=== PATIENT | male | born 1940 | race Asian ===

== ENCOUNTER → 2023-08-04 12:43 | Outpatient (REF) | payer MEDICARE, SELFPAY | LOC: RAD 12:43 | PROVIDERS: ATTENDING PHYSICIAN Internal Medicine Hematology & Oncology; FAMILY PHYSICIAN Internal Medicine; REFERRING PHYSICIAN Nurse Practitioner Adult Health | DX: R59.0 Localized enlarged lymph nodes (principal); C67.9 Malignant neoplasm of bladder, unspecified | CPT/HCPCS: 71260; 74177; Q9967 ==

== ENCOUNTER → 2023-08-30 16:17 | Outpatient (REF) | payer MEDICARE, SELFPAY ==
[2023-08-30 14:51] LABS: % Basophils 0.5 % (0-2); % Immature Granulocytes 0.4 % (0-0.5); % Lymphocytes 7.4 % (20.5-51.1); % Monocytes 8.3 % (1.7-9.3); % Neutrophils 83.4 % (42.2-75.2); Absolute Basophils 0.1 10^3/uL (0-0.2); Absolute Immature Granulocytes 0.1 10^3/uL (0-0.05); Absolute Monocytes 1.1 10^3/uL (0.1-0.6); Absolute Neutrophils 11.1 10^3/uL (1.4-6.5); Hematocrit 29.6 % (39.0-52.0); Hemoglobin 9.7 g/dL (13.0-18.0); Mean Corp Hgb Conc. 32.8 g/dL (33.0-37.0); Mean Corpuscular Volume 91.6 fL (80.0-94.0); Nucleated Red Blood Cells % 0 % (-); Platelet Count 162 10^3/uL (130-400); Red Blood Cell Count 3.23 10^6/uL (4.70-6.10); Red Cell Dist. Width 17.7 % (11.5-14.5); White Blood Cell Count 13.3 10^3/uL (4.8-10.8)
[2023-08-30 15:02] LABS: ALT (SGPT) 15 U/L (0-50); AST (SGOT) 25 U/L (17-59); Albumin 3.5 g/dl (3.5-5.0); Alkaline Phosphatase 128 U/L (38-126); Blood Urea Nitrogen 24 mg/dl (9-20); Calcium 8.7 mg/dl (8.4-10.2); Carbon Dioxide 26 mmol/L (22-30); Chloride 98 mmol/L (98-107); Glucose 115 mg/dl (70-99); Potassium 4.3 mmol/L (3.5-5.1); Sodium 130 mmol/L (135-145); Total Bilirubin 0.6 mg/dl (0.2-1.3); Total Protein 6.5 g/dl (6.3-8.2); eGFR 54.17
== END ==
LOC: OIDL 16:17
PROVIDERS: ATTENDING PHYSICIAN Internal Medicine Hematology & Oncology
DX: R59.0 Localized enlarged lymph nodes (principal); N28.89 Other specified disorders of kidney and ureter
CPT/HCPCS: 80053; 85025

== ENCOUNTER → 2023-08-31 15:58 | Outpatient (REF) | payer MEDICARE, SELFPAY ==
[2023-08-31 14:10] LABS: Iron 55 ug/dl (49-181)
[2023-08-31 14:20] LABS: Percent Saturation 23 % (20-50); Total Iron Binding Capacity 231 ug/dl (261-462)
== END ==
LOC: OIDL 15:58
PROVIDERS: ATTENDING PHYSICIAN Nurse Practitioner Adult Health
DX: R59.0 Localized enlarged lymph nodes (principal); D63.1 Anemia in chronic kidney disease
CPT/HCPCS: 82728; 83540; 83550

== ENCOUNTER → 2023-09-09 12:40 | Outpatient (REF) | payer MEDICARE, SELFPAY ==
[2023-09-09 13:38] LABS: Urine Albumin 2+ (Neg - Trace); Urine Bilirubin Negative (Negative); Urine Character Very Cloudy (Clear); Urine Color Yellow; Urine Glucose Negative (Negative); Urine Ketone Negative (Negative); Urine Leukocyte 2+ (Negative); Urine Nitrite Positive (Negative); Urine Occult Blood 4+ (Negative); Urine Urobilinogen Negative (Neg - 1+)
[2023-09-09 14:02] LABS: Urine Bacteria Moderate (Negative); Urine Squamous Cell 0-2 /LPF (Few); Urine White Cell 16-20 /HPF (0-5)
== END ==
LOC: REG 12:40
PROVIDERS: ATTENDING PHYSICIAN Internal Medicine Hematology & Oncology; FAMILY PHYSICIAN Internal Medicine
DX: R59.0 Localized enlarged lymph nodes (principal); C67.9 Malignant neoplasm of bladder, unspecified; Z51.81 Encounter for therapeutic drug level monitoring; R53.82 Chronic fatigue, unspecified; D63.1 Anemia in chronic kidney disease; N28.89 Other specified disorders of kidney and ureter
CPT/HCPCS: 81003; 81015; 87086; 87147; 87186

== ENCOUNTER → 2023-09-15 12:54 | Outpatient (REF) | payer MEDICARE, SELFPAY ==
[2023-09-15 13:34] LABS: % Basophils 0.2 % (0-2); % Eosinophils 0.2 % (0-6); % Immature Granulocytes 0.8 % (0-0.5); % Lymphocytes 3.9 % (20.5-51.1); % Monocytes 4.7 % (1.7-9.3); % Neutrophils 90.2 % (42.2-75.2); Absolute Basophils 0.1 10^3/uL (0-0.2); Absolute Eosinophils 0.1 10^3/uL (0-0.7); Absolute Immature Granulocytes 0.2 10^3/uL (0-0.05); Absolute Lymphocytes 1.1 10^3/uL (1.2-3.4); Absolute Monocytes 1.4 10^3/uL (0.1-0.6); Absolute Neutrophils 26.5 10^3/uL (1.4-6.5); Hematocrit 30.2 % (39.0-52.0); Hemoglobin 9.9 g/dL (13.0-18.0); Mean Corp Hgb Conc. 32.8 g/dL (33.0-37.0); Mean Corpuscular Hgb 30.3 pg (27.0-31.0); Mean Corpuscular Volume 92.4 fL (80.0-94.0); Mean Platelet Volume 9.7 fL (7.4-10.4); Nucleated Red Blood Cells % 0 % (-); Platelet Count 151 10^3/uL (130-400); Red Blood Cell Count 3.27 10^6/uL (4.70-6.10); Red Cell Dist. Width 18.6 % (11.5-14.5); White Blood Cell Count 29.3 10^3/uL (4.8-10.8)
== END ==
LOC: REG 12:54
PROVIDERS: ATTENDING PHYSICIAN Internal Medicine Hematology & Oncology; FAMILY PHYSICIAN Internal Medicine
DX: R59.0 Localized enlarged lymph nodes (principal); C67.9 Malignant neoplasm of bladder, unspecified; Z51.81 Encounter for therapeutic drug level monitoring; R53.82 Chronic fatigue, unspecified; D63.1 Anemia in chronic kidney disease
CPT/HCPCS: 36415; 85025

== ENCOUNTER → 2023-09-17 15:35 | Outpatient (REF) | payer MEDICARE, SELFPAY ==
[2023-09-17 16:40] LABS: % Basophils 0.4 % (0-2); % Eosinophils 0.1 % (0-6); % Immature Granulocytes 0.7 % (0-0.5); % Lymphocytes 4.6 % (20.5-51.1); % Monocytes 5.8 % (1.7-9.3); % Neutrophils 88.4 % (42.2-75.2); Absolute Basophils 0.1 10^3/uL (0-0.2); Absolute Immature Granulocytes 0.2 10^3/uL (0-0.05); Absolute Monocytes 1.3 10^3/uL (0.1-0.6); Absolute Neutrophils 20.1 10^3/uL (1.4-6.5); Hematocrit 28.2 % (39.0-52.0); Hemoglobin 9.7 g/dL (13.0-18.0); Mean Corp Hgb Conc. 34.4 g/dL (33.0-37.0); Mean Corpuscular Hgb 30.8 pg (27.0-31.0); Mean Corpuscular Volume 89.5 fL (80.0-94.0); Mean Platelet Volume 9.7 fL (7.4-10.4); Nucleated Red Blood Cells % 0 % (-); Platelet Count 163 10^3/uL (130-400); Red Blood Cell Count 3.15 10^6/uL (4.70-6.10); Red Cell Dist. Width 18.9 % (11.5-14.5); White Blood Cell Count 22.8 10^3/uL (4.8-10.8)
[2023-09-17 16:45] LABS: ALT (SGPT) 16 U/L (0-50); AST (SGOT) 25 U/L (17-59); Albumin 3.5 g/dl (3.5-5.0); Alkaline Phosphatase 151 U/L (38-126); Blood Urea Nitrogen 32 mg/dl (9-20); Calcium 8.8 mg/dl (8.4-10.2); Carbon Dioxide 22 mmol/L (22-30); Chloride 97 mmol/L (98-107); Glucose 93 mg/dl (70-99); Potassium 4.6 mmol/L (3.5-5.1); Sodium 130 mmol/L (135-145); Total Bilirubin 0.3 mg/dl (0.2-1.3); Total Protein 6.3 g/dl (6.3-8.2); eGFR 39.26
== END ==
LOC: RAD 15:35
PROVIDERS: ATTENDING PHYSICIAN Internal Medicine Hematology & Oncology; FAMILY PHYSICIAN Internal Medicine
DX: R59.0 Localized enlarged lymph nodes (principal); C67.9 Malignant neoplasm of bladder, unspecified; Z51.81 Encounter for therapeutic drug level monitoring; R53.82 Chronic fatigue, unspecified; D63.1 Anemia in chronic kidney disease
CPT/HCPCS: 36415; 80053; 85025

== ENCOUNTER → 2023-09-18 10:34 | Outpatient (REF) | payer MEDICARE, SELFPAY ==
[2023-09-18 11:29] LABS: Urine Albumin 1+ (Neg - Trace); Urine Bilirubin 1+ (Negative); Urine Character Slightly Cloudy (Clear); Urine Color Brown; Urine Glucose Negative (Negative); Urine Ketone Trace (Negative); Urine Leukocyte 2+ (Negative); Urine Nitrite Negative (Negative); Urine Occult Blood 4+ (Negative); Urine Specific Gravity 1.015 (<1.030); Urine Urobilinogen Negative (Neg - 1+)
[2023-09-18 11:42] LABS: Urine Bacteria Moderate (Negative); Urine Red Blood Cell 16-20 /HPF (0-2); Urine White Cell 70-80 /HPF (0-5)
== END ==
LOC: REG 10:34
PROVIDERS: ATTENDING PHYSICIAN Internal Medicine Hematology & Oncology; FAMILY PHYSICIAN Internal Medicine
DX: R59.0 Localized enlarged lymph nodes (principal); C67.9 Malignant neoplasm of bladder, unspecified; Z51.81 Encounter for therapeutic drug level monitoring; R53.82 Chronic fatigue, unspecified; D63.1 Anemia in chronic kidney disease; N28.89 Other specified disorders of kidney and ureter
CPT/HCPCS: 81003; 81015; 87086

== ENCOUNTER 2023-09-22 18:26 | Inpatient (IN) | payer MEDICARE, SELFPAY ==
[2023-09-22] VITALS (12 sets, daily range): BP systolic 121–176; BP diastolic 50–72; BMI 16.3; BMI 15.1
[2023-09-22 13:29] LABS: % Basophils 0.5 % (0-2); % Eosinophils 0.1 % (0-6); % Immature Granulocytes 0.5 % (0-0.5); % Lymphocytes 7.1 % (20.5-51.1); % Neutrophils 86.8 % (42.2-75.2); Absolute Basophils 0.1 10^3/uL (0-0.2); Absolute Immature Granulocytes 0.1 10^3/uL (0-0.05); Absolute Lymphocytes 1.1 10^3/uL (1.2-3.4); Absolute Monocytes 0.8 10^3/uL (0.1-0.6); Absolute Neutrophils 13.3 10^3/uL (1.4-6.5); Hematocrit 29.8 % (39.0-52.0); Hemoglobin 9.8 g/dL (13.0-18.0); Mean Corp Hgb Conc. 32.9 g/dL (33.0-37.0); Mean Corpuscular Hgb 30.6 pg (27.0-31.0); Mean Corpuscular Volume 93.1 fL (80.0-94.0); Mean Platelet Volume 9.2 fL (7.4-10.4); Nucleated Red Blood Cells % 0 % (-); Platelet Count 159 10^3/uL (130-400); Red Cell Dist. Width 18.7 % (11.5-14.5); White Blood Cell Count 15.3 10^3/uL (4.8-10.8)
[2023-09-22 13:35] LABS: INR 1.07; PT 13.9 Sec (11.4-14.6)
[2023-09-22 13:37] LABS: ALT (SGPT) 19 U/L (0-50); AST (SGOT) 28 U/L (17-59); Albumin 3.7 g/dl (3.5-5.0); Alkaline Phosphatase 152 U/L (38-126); Blood Urea Nitrogen 30 mg/dl (9-20); Calcium 8.7 mg/dl (8.4-10.2); Carbon Dioxide 22 mmol/L (22-30); Chloride 100 mmol/L (98-107); Glucose 107 mg/dl (70-99); Potassium 4.7 mmol/L (3.5-5.1); Sodium 129 mmol/L (135-145); Total Bilirubin 0.6 mg/dl (0.2-1.3); Total Protein 6.6 g/dl (6.3-8.2); eGFR 49.56
--- NOTE | 2023-09-22 15:01 | ED.GENMED ---
History of Present Illness
General
Chief Complaint: Urinary Symptoms
Time Seen by Provider: 09/22/23 15:01
Travel History
Have you had any contact with someone who has COVID-19?: No
Do you have any symptoms of coronavirus? Fever > 100 degrees, chills, cough, shortness of breath, sore throat, loss of taste or smell, muscle aches, or headache?: No
History of Present Illness
History of Present Illness:
HPI: The patient presents with gross hematuria. This is associated with left-sided abdominal and back pain. He has a history of a malignancy. He is known to Dr. Saunders and Dr. Renner. He last had chemo a few weeks ago with Keytruda and
reports have elevated white blood cell count�uncertain if he received Neupogen or Neulasta recently. He has had no fevers.
EXAM:
GENERAL: The patient appears generally weak and debilitated, he is cachectic
HEENT: Dry oral mucosa
CARDIOVASCULAR: No murmurs, normal heart rate, regular rhythm, No chest wall tenderness
PULMONARY: No respiratory distress, breath sounds are clear and equal
ABDOMEN: Soft with no peritoneal signs, minimal left-sided tenderness, mild left CVA tenderness
NEUROLOGIC: Fair strength all extremities, no coordination deficits
PSYCHIATRIC: Appropriate mental status, normal insight and judgement
EXTREMITIES: Nontender, no edema, moves all extremities equally
SKIN: No rash, no lesions
TIME OF INITIAL ENCOUNTER: 3:10 PM
NUMBER AND COMPLEXITY OF PROBLEMS ADDRESSED AT THE ENCOUNTER
� Chronic conditions affecting care: malignancy, has had bowel obstruction, high blood pressure, iron deficiency anemia
� Acute Exacerbation and/or Progression of Chronic Illness: This is a recurrent problem
� Differential Diagnosis includes: Worsening malignancy, ureteral stone, UTI/pyelonephritis, nonspecific hematuria
AMOUNT AND/OR COMPLEXITY OF DATA TO BE REVIEWED AND ANALYZED
� I performed an independent evaluation of and my interpretation is:
EKG: Sinus 58, leftward axis, poor R wave progression, borderline LVH
CT: I personally viewed CT imaging�bladder is noted to be mild to moderately distended but patient was unable to void at all
X-rays:
Laboratory Studies: White count is 15.3-5 days ago white count was 23, hemoglobin is 9.8�this is similar to prior, creatinine 1.4 which is near baseline, urinalysis shows much more RBCs and WBCs
Other:
� Review of other/old records: I reviewed oncology note from last December, at that time the patient had biopsy by IR of retroperitoneal nodes and had hematuria and was on CBI at that time
� Clinical information was obtained by an independent historian: I spoke to the at bedside
� Prescriptions/Medications Considered but not given:
� Further testing considered but not performed:
RISK OF COMPLICATIONS AND/OR MORBIDITY OR MORTALITY OF PATIENT MANAGEMENT
� Social determinants of health affecting care: Lives at home
� Discussion with other providers: At around 4:45 PM, I notified Dr. Mar as well as Dr. Boyle, Dr. Boyle agrees with CBI. Hospitalist for admission at 5:05 PM.
� Escalation of care including admission/observation vs risk of discharge considered: I personally assisted the patient by having him stand up and he was able to void just a few drops of blood, he does not have any suprapubic
distention, will obtain CT imaging for further evaluation. He was given IV fluids. CT does show a distended bladder�I have asked nurse to place three-way catheter. He did become bradycardic shortly after CBI was started but then EKG confirmed
heart rate back to 58.
Past History
Past History
ED Past Medical History: Cancer (colon)
ED Past Surgical History: Bowel resection
Patient has exhibited threatening behavior?: No
PSI?: No
Social History
Tobacco: Non-smoker
Alcohol: None
Drug: None
Personal:
Living: with family
Phy Exam
Physical Exam
Physical Exam:
See HPI
Course
Orders/Labs/Results
Orders:
Orders
09/22/23 13:17
Complete Blood Count/With Diff Urgent
Comprehensive Metabolic Panel Urgent
PT/INR [Prothrombin Time] Urgent
09/22/23 15:13
CT Abd/pel Without Iv Or Oral Urgent
Comment:
Reason For Exam: L pain gross hematuria; known malignancy; h/o ston
09/22/23 15:14
0.9% Sodium Chloride 500 ml [Nss] 500 ml IV BOLUS
09/22/23 15:41
CBI- Treatment PRN
Solution: saline
Irrigate to Clear?: Yes
Albert [Albert Placement- Treatment] ONCE
Reason for insertion: Acute Retention
09/22/23 15:48
Urinalysis Reflex To Culture Urgent
Date Specimen was Collected: 09/22/23
Time Specimen was Collected: 13:11
Urine Microscopic Reflex Cult Urgent
09/22/23 16:34
Electrocardiogram (*1) Urgent
Reason for Study: Bradycardia / Tachycardia
EKG- Treatment ONCE
09/22/23 17:46
HEMATOLOGY CONSULT Routine
Consulting Provider: Jayla Mar
Was physician already notified: Yes
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
09/22/23 17:47
Admit/Transfer Patient As Directed
Co-Sign Provider:
Level of Care: Inpatient admission
Assign to:: Medical/Surgical
Physician / Group: beth sorensen
Diagnosis: gross hematuria w/ urothelial cancer
Reason for Hospitalization: gross hematuria w/ urothelial cancer
Expected length of stay greater than two midnights?: Yes
ELOS- Estimated Length of Stay in days: 3
I certify the patient meets the requirements for IP care: Yes
Code Status As Directed
Resuscitation Status: Full Code
UROLOGY CONSULT Routine
Consulting Provider: Yobani Boyle
Was physician already notified: Yes
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
Abnormal Lab Results
09/22/23 09/22/23
13:17 15:48
WBC 15.3 H 10^3/uL
(4.8-10.8)
RBC 3.20 L 10^6/uL
(4.70-6.10)
Hgb 9.8 L g/dL
(13.0-18.0)
Hct 29.8 L %
(39.0-52.0)
MCHC 32.9 L g/dL
(33.0-37.0)
RDW 18.7 H %
(11.5-14.5)
Abs Immat Gran (auto) 0.1 H 10^3/uL
(0-0.05)
Absolute Neuts (auto) 13.3 H 10^3/uL
(1.4-6.5)
Absolute Lymphs (auto) 1.1 L 10^3/uL
(1.2-3.4)
Absolute Monos (auto) 0.8 H 10^3/uL
(0.1-0.6)
Neutrophils % 86.8 H %
(42.2-75.2)
Lymphocytes % 7.1 L %
(20.5-51.1)
Sodium 129 L mmol/L
(135-145)
BUN 30 H mg/dl
(9-20)
Creatinine 1.4 H mg/dL
(0.7-1.3)
Glucose 107 H mg/dl
(70-99)
Alkaline Phosphatase 152 H U/L
(38-126)
Ur Occult Blood Reflex 4+ A
(Negative)
Leukocyte Esterase Rfl Trace A
(Negative)
Urine RBC >100 A /HPF
(0-2)
Urine Albumin (Reflex) 3+ A
(Neg - Trace)
09/22/23 13:17
09/22/23 13:17
Vital Signs
Initial and Last Documented VS:
Initial Vital Signs
Temp Pulse Resp BP Pulse Ox
98.6 F 60 18 140/70 98
09/22/23 13:05 09/22/23 13:05 09/22/23 13:05 09/22/23 13:05 09/22/23 13:05
Last Documented Vital Signs
Temp Pulse Resp BP Pulse Ox
98.6 F 58 22 176/70 99
09/22/23 13:05 09/22/23 17:15 09/22/23 17:15 09/22/23 17:00 09/22/23 17:15
*Critical Care Note
Total Time (30-74mins, 75-104mins- exclusive of procedures): Not Applicable
ED Attending Note
-
Portions of this chart may have been created with voice recognition software.� Occasional wrong word or��sound alike� substitutions may have occurred due to the inherent limitations of voice recognition software.
Discharge Plan
Departure
Patient Disposition: Admit
Date of Disposition: 09/22/23
Time of Disposition: 17:05
Presentation/result/management discussed w/ accepting MD/DO: Hospitalist
Discharge Problem:
Gross hematuria
Prescriptions:
No Action
tamsulosin [Flomax] 0.4 MG capsule
0.4 mg PO DAILYPRN PRN (Reason: kidney stones)
acetaminophen 500 mg Tablet
1,000 mg PO DAILYPRN PRN (Reason: mild pain)
cinnamon bark [Cinnamon] 500 mg Capsule
1,000 mg PO DAILY
cholecalciferol (vitamin D3) [Vitamin D3] 125 mcg (5,000 unit) Tablet
5,000 unit PO DAILY
melatonin 5 mg Capsule
10 mg PO HSPRN PRN (Reason: SLEEP)
ferrous sulfate [iron] 325 mg (65 mg iron) Tablet
325 mg PO DAILY
cyanocobalamin (vitamin B-12) 1,000 mcg Tablet
1,000 mcg PO DAILY
amlodipine [Norvasc] 5 mg Tablet
5 mg PO DAILY
mirtazapine 15 mg Tablet
15 mg PO HS
Referrals:
Vangie Saravia MD [Family Provider] -
Interventions
Interventions:
*Risk Screen - Suicide Last Done: 09/22/23 13:05
*General Assessment Last Done: 09/22/23 13:05
*Neglect/Abuse Screening Last Done: 09/22/23 13:05
ED- Fall Risk Assessment Last Done: 09/22/23 14:55
*ED COVID-19 Vaccine History Last Done: 09/22/23 13:05
ED-Male Genitourinary Assessment Last Done: 09/22/23 14:49
[2023-09-22] MEDS: NSS 500 IV (15:30)
[2023-09-22 16:40] LABS: Urine Albumin 3+ (Neg - Trace); Urine Bilirubin Negative (Negative); Urine Character Bloody (Clear); Urine Color Red; Urine Glucose Negative (Negative); Urine Ketone Negative (Negative); Urine Leukocyte Trace (Negative); Urine Nitrite Negative (Negative); Urine Occult Blood 4+ (Negative); Urine Urobilinogen Negative (Neg - 1+)
[2023-09-22 16:51] LABS: Urine Red Blood Cell >100 /HPF (0-2)
--- NOTE | 2023-09-22 17:13 | HPS.HSE ---
Addendum entered and electronically signed by Eliane Vo MD 09/22/23 18:11:
I saw and examined the patient.
The L[employer] TR[employer] DRIVER's note was reviewed and I agree with the note.
Comment:
83-year-old male PMH hypertension, iron deficiency anemia, bowel obstruction with bowel resection 2001 secondary to colon cancer, urothelial cancer on Keytruda (follows with [facility]); p/w gross hematuria and difficulty with urination.
He is currently on Keytruda and was on Padcev therapy which was stopped last week due to elevated WBC count of 29.
� � � ��CT abdomen pelvis without contrast:
�� � � � � � 1.� Left kidney contains calculi and is also involvement with known retroperitoneal lymphadenopathy evaluation for left-sided obstructive uropathy markedly limited
�� � � � � � 2.� Likely progression of advanced retroperitoneal malignancy/lymphadenopathy compared to August 04, 2023
�� � � � � � 3.� Nonobstructing right renal calculi/staghorn calculi
�� � � � � � 4.� Cannot exclude intrinsic urinary bladder malignancy enlarged prostate with extrinsic compression upon the urinary bladder base
�� � � � � � 5.� DJD cannot exclude metastatic disease L2-L3 vertebral bodies
A/P:
# Gross hematuria in setting of Urothelial cancer
Receives Keytruda therapy�and was Padcev with Dr. Saunders
U/A neg for UTI
CBI started in ED, cont
Consult urology
Consult oncology
Continue Flomax with hold parameters for BP
# Improved leukocytosis
WBC at 29 one week AUTOMATIC [employer]READ W[employer]ER and Padcev was held
monitor CBC
# Hyponatremia
NA 129
Follow BMP
# CKD stage IIIb
Creat at 1.4 appears at baseline
# HTN-benign
Continue AUTOMATIC THREAD WINDER Norvasc
Add hydralazine IV PRN for SBP > 160
# Iron deficiency anemia
Continue ferrous sulfate
# History of colon cancer with bowel resection 2001
# Chronic ambulatory dysfunction
PT/OT/case management eval
# Insomnia
Continue melatonin as needed, Remeron
# Cachexia, severe protein caloric malnutrition
BMI 16.3
DVT prophylaxis: SCDs
Full code per patient with Vangie at bedside
Original Note:
Family Physician
-
Family Physician: Vangie Saravia
Chief Complaint
-
Gross hematuria
History of Present Illness
83-year-old male complaining of gross hematuria with left-sided abdominal and back pain that started today. He is known to Dr. Saunders for urothelial cancer he is currently on Keytruda therapy he is also on Padcen therapy which was stopped last week
due to elevated WBC count of 29 and is to resume once white blood cell count normalizes. He does report elevated white blood cell count unsure if he has received Neupogen or Neulasta recently. He was on prior chemotherapy from January to April 2023
per she is unsure of names. The patient denies fever, chills, chest pain, palpitations, shortness of breath, abdominal pain, nausea, vomiting, diarrhea.
His other past medical history includes hypertension, insomnia, iron deficiency anemia, balance disorder, bowel obstruction with bowel resection 2001 secondary to colon cancer.
Medical History
Past Medical History
Past Medical History: Reports Other
Additional Past Medical History:
Urothelial cancer on current immunotherapy Keytruda
Receives Keytruda therapy with Dr. Saunders and Padcin chemo
HTN
Iron deficiency anemia
History of colon cancer with bowel resection 2001
Ambulatory dysfunction
Insomnia
Past Surgical History: Reports Other
Additional Past Surgical History:
Bowel resection 2001 secondary to colon cancer
Kidney stone removal
Status post left renal embolization 12/11/2022
Retroperitoneal adenopathy status post biopsy December 2022
Social History
Tobacco: Non-smoker
Alcohol: None
Drug: None
Personal:
Living: With Family ( Vangie)
Employment: Retired
Family History
Family History: Other (Father of colon cancer age 92 mother gastric cancer age 72)
Allergies / Home Medications
Allergies reflects when Allergies were last updated in [employer]
Home Medications with original date entered in [employer]
Allergy/Medication List:
Allergies
Allergy/AdvReac Type Severity Reaction Status Date / Time
No Known Allergies Allergy Verified 09/22/23 13:10
Home Medications
tamsulosin 0.4 mg capsule (Flomax) 0.4 mg PO DAILYPRN PRN kidney stones 09/26/22
acetaminophen 500 mg tablet 1,000 mg PO DAILYPRN PRN mild pain 11/26/22
cholecalciferol (vitamin D3) 125 mcg (5,000 unit) tablet (Vitamin D3) 5,000 unit PO DAILY Supplement 11/26/22
cinnamon bark 500 mg capsule (Cinnamon) 1,000 mg PO DAILY Supplement 11/26/22
melatonin 5 mg capsule 10 mg PO HSPRN PRN SLEEP 11/26/22
ferrous sulfate 325 mg (65 mg iron) tablet (iron) 325 mg PO DAILY 01/15/23
amlodipine 5 mg tablet (Norvasc) 5 mg PO DAILY 09/22/23
cyanocobalamin (vitamin B-12) 1,000 mcg tablet 1,000 mcg PO DAILY 09/22/23
mirtazapine 15 mg tablet 15 mg PO HS 09/22/23
Review of Systems
-
History Source: Patient and Family ( Vangie)
A 12 point ROS was completed and negative except as noted: Yes
Constitutional: Denies Fever or Fatigue
EENT: Denies Runny Nose
Respiratory: Denies Cough or Trouble Breathing
Cardiac: Denies Chest Pain, Diaphoresis or Palpitations
Abdomen/GI: Reports Abdominal Pain (Suprapubic tenderness, left-sided abdominal pain); Denies Nausea, Vomiting, Diarrhea, Constipated or Bloody Stools
: Reports Flank Pain (Left) and Bleeding (Hematuria)
Musculoskeletal: Denies Joint Pain or Edema
Skin: Denies Itching or Rash
Neurological: Denies Dizzy, Headache or Weakness
Endocrine: Reports No Symptoms
Hematologic/Lymphatic: Reports No Symptoms
Psych: Reports Calm
Physical Exam
Vital Signs
Vital Signs
Temp Pulse Resp BP Pulse Ox
98.6 F 60 8 160/61 96
09/22/23 13:05 09/22/23 13:05 09/22/23 16:30 09/22/23 16:29 09/22/23 16:30
Physical Exam
General: Comfortable, Conversant and Cachectic; No Fever or Chills
HEENT: NormoCephalic, Anicteric, PERRLA, [place] Conjunctivae and No Ptosis
Respiratory: Clear; No Wheezes, Rales or Rhonchi
Cardiac: S1/S2 and Bradycardia; No Murmur, Rub, Gallop or Peripheral Edema
Breast: Deferred by me
GI: Soft, Non Distended, Normal Bowel Sounds and Tender (Suprapubic tenderness with CBI fluids infusing)
Rectal: Deferred by Provider
Genito-urinary: Albert (CBI draining strawberry in color no current clots)
Musculoskeletal: No Clubbing, No Cyanosis and No Edema
Skin: Warm and Dry; No Rash
Neuro: AO x 3, No Motor Deficits, Nonfocal/grossly intact, Cranial Nerves Intact and No Sensory Deficits; No Slurred Speech, Facial Droop or Tremors
Psych: Calm
Laboratory Results
-
09/22/23 13:17
09/22/23 13:17
Laboratory Results
PT 13.9 Sec (11.4-14.6) 09/22/23 13:17
INR 1.07 09/22/23 13:17
Total Bilirubin 0.6 mg/dl (0.2-1.3) 09/22/23 13:17
AST 28 U/L (17-59) 09/22/23 13:17
ALT 19 U/L (0-50) 09/22/23 13:17
Alkaline Phosphatase 152 U/L (38-126) H 09/22/23 13:17
Impression/Plan
-
Impression/plan:
Admit to MedSurg
#Gross hematuria in setting of Urothelial cancer on current immunotherapy
Receives Keytruda therapy and Padcev with Dr. Saunders
WBC 15.3, Hgb 9.8
U/A neg
-Consult urology
-Consult oncology
-CBI
-Continue Flomax with hold parameters for BP
CT abdomen pelvis without contrast:
1. Left kidney contains calculi and is also involvement with known retroperitoneal lymphadenopathy evaluation for left-sided obstructive uropathy markedly limited
2. Likely progression of advanced retroperitoneal malignancy/lymphadenopathy compared to August 04, 2023
3. Nonobstructing right renal calculi/staghorn calculi
4. Cannot exclude intrinsic urinary bladder malignancy enlarged prostate with extrinsic compression upon the urinary bladder base
5. DJD cannot exclude metastatic disease L2-L3 vertebral bodies
#Recent leukocytosis thought to be secondary to Padcev
- states 1 week ago WBC was 29 and Padcev was held
WBC is currently improving at 15.3 will monitor CBC
#Hyponatremia
NA 129 baseline for pt 130
Follow BMP
#CKD stage IIIb
Creat 1.4 appears baseline
-Follow BMP
#HTN-benign
160/61
-Continue Norvasc hydralazine 10 mg SBP>160 prn
#Iron deficiency anemia
-Continue ferrous sulfate
#History of colon cancer with bowel resection 2001
#Chronic ambulatory dysfunction
-PT/OT/case management eval
#Insomnia
-Continue melatonin as needed, Remeron
#Cachexia multifactorial�BMI 16.3 EKG
Encourage patient to eat/snack/use protein shakes
DVT prophylaxis
SCDs
Full code per patient with Vangie at bedside
[2023-09-22] MEDS: TYLENOL 650 MG PO (21:54)
[2023-09-23] MEDS: REMERON 15 MG PO (00:08)
[2023-09-23 04:48] LABS: % Basophils 0.4 % (0-2); % Eosinophils 0.1 % (0-6); % Immature Granulocytes 0.3 % (0-0.5); % Lymphocytes 6.7 % (20.5-51.1); % Monocytes 5.8 % (1.7-9.3); % Neutrophils 86.7 % (42.2-75.2); Absolute Basophils 0.1 10^3/uL (0-0.2); Absolute Immature Granulocytes 0.1 10^3/uL (0-0.05); Absolute Monocytes 0.9 10^3/uL (0.1-0.6); Absolute Neutrophils 12.8 10^3/uL (1.4-6.5); Hematocrit 26.4 % (39.0-52.0); Hemoglobin 8.7 g/dL (13.0-18.0); Mean Corpuscular Hgb 30.6 pg (27.0-31.0); Mean Platelet Volume 9.2 fL (7.4-10.4); Nucleated Red Blood Cells % 0 % (-); Platelet Count 131 10^3/uL (130-400); Red Blood Cell Count 2.84 10^6/uL (4.70-6.10); Red Cell Dist. Width 18.3 % (11.5-14.5); White Blood Cell Count 14.8 10^3/uL (4.8-10.8)
[2023-09-23 05:11] LABS: Blood Urea Nitrogen 28 mg/dl (9-20); Calcium 8.3 mg/dl (8.4-10.2); Carbon Dioxide 21 mmol/L (22-30); Chloride 104 mmol/L (98-107); Estimated Creatinine Clearance 31 ml/min; Glucose 85 mg/dl (70-99); Potassium 4.1 mmol/L (3.5-5.1); Sodium 129 mmol/L (135-145); eGFR 59.63
[2023-09-23 07:00] VITALS: BP 138/66
--- NOTE | 2023-09-23 08:04 | CON.ONC ---
Addendum entered and electronically signed by Norm Saunders DO 09/23/23 10:54:
Patient evaluated and chart reviewed independently. Agree with the impression and plan as outlined by MOHINI. Patient is scheduled for outpatient PET CT scan restaging. This may need to be rescheduled due to the proximity to the current admission
to the hospital. CT scan difficult to interpret for progressive disease. Hematuria may be related to to malignancy difficult to ascertain in light of the inflammatory response to UTI and nephrolithiasis. CBI appears clear today. Follow-up in the
office to consider options for therapy if there is evidence of progression such as focal radiation and alternate systemic therapy.
Original Note:
Impression
Impression
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
Retroperitoneal lymphadenopathy
New onset gross hematuria
Bilateral nephrolithiasis on imaging
Staphylococcus UTI treated with Bactrim (09/09-09/16)
Anemia or chronic disease on Aranesp (last received 09/14/23)
CHRISTOPHER (resolving; baseline Creat 1.3-1.4)
Acute leukocytosis
Hyponatremia
Cachexia
Plan
Plan
09/22 Hgb 8.7, Hct 26.4
Monitor H/H, CBC daily
Transfuse as needed to maintain Hgb >7
CBI per Urology
Monitor CMP, Creat 1.2 returned to baseline
No indication for IV iron at this time
Supportive care
PET/CT scheduled tomorrow, 09/23. This can be rescheduled based on discharge planning.
We will follow. Next dose of Aranesp and Padcev is scheduled: 09/27 @ 13:15 at [facility].
Our office has been notified of patient's hospital admission.
Patient History
History of Present Illness
Lakesha Gilman is an 83 year old [place] male known to Dr. 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 He was diagnosed in 2022 after several episodes of gross hematuria. He had
been managed on Keytruda which was completed as of 08/03/23. Padcev was added May 2023, which has continued. Last dose received 08/31/23; due next 09/28/23. He has been receiving Aranesp in our office as well for renal insufficiency. He has been
referred to Radiation Oncology for palliative benefit.
Patient's had called our office 09/16 with reports of left flank pain and dysuria. Urine culture was positive on 09/08 for Staphylococcus epidermis. He was provided a course of Bactrim for acute UTI. He was instructed to increase hydration due to
bump in Creat. He returned call to the office with reports of new onset gross hematuria, low grade fever, decreased urine output with persistent flank pain despite course of oral antibiotics. He as referred to the ER for further evaluation. Upon
arrival to the ER, CBI was initiated.
Past-Medical/Surgical History
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
Iron deficiency anemia
Hx colon cancer w/ bowel resection (2001)
CKD3b (baseline Creat 1.4)
Anemia of chronic disease
Chronic fatigue
Recurrent nephrolithiasis
Hx embolization of left kidney
Hypertension
BPH
DJD lumbar spine
Patient Medication
Medication Instructions Recorded Confirmed Last Taken Type
tamsulosin 0.4 mg capsule (Flomax) 0.4 mg PO DAILYPRN PRN kidney 09/26/22 09/22/23 02/23/23 History
stones
acetaminophen 500 mg tablet 1,000 mg PO DAILYPRN PRN mild pain 11/26/22 09/22/23 09/22/23 History
cholecalciferol (vitamin D3) 125 5,000 unit PO DAILY Supplement 11/26/22 09/22/23 02/22/23 History
mcg (5,000 unit) tablet (Vitamin
D3)
cinnamon bark 500 mg capsule 1,000 mg PO DAILY Supplement 11/26/22 09/22/23 02/22/23 History
(Cinnamon)
melatonin 5 mg capsule 10 mg PO HSPRN PRN SLEEP 11/26/22 09/22/23 02/22/23 History
ferrous sulfate 325 mg (65 mg 325 mg PO DAILY 01/15/23 09/22/23 09/22/23 History
iron) tablet (iron)
amlodipine 5 mg tablet (Norvasc) 5 mg PO DAILY 09/22/23 09/22/23 09/22/23 History
cyanocobalamin (vitamin B-12) 1,000 mcg PO DAILY 09/22/23 09/22/23 09/22/23 History
1,000 mcg tablet
mirtazapine 15 mg tablet 15 mg PO HS 09/22/23 09/22/23 09/21/23 History
Active Medications
Generic Name Dose Route Start Last Admin
Trade Name Freq PRN Reason Stop Dose Admin
Acetaminophen 650 mg 09/22/23 21:49 09/22/23 21:54
Acetaminophen 325 Mg Tablet PO 10/20/23 21:48 650 mg
Q4HPRN PRN Administration
mild pain/SHAY/temp> 100.4F
Amlodipine Besylate 5 mg 09/23/23 08:00
Amlodipine 5 Mg Tablet PO 10/21/23 07:59
DAILY KARIME
Cholecalciferol 125 mcg 09/23/23 08:00
Cholecalciferol (Vitamin D3) 125 Mcg Tablet (5,000 Units) PO 10/21/23 07:59
DAILY KARIME
Cyanocobalamin 1,000 mcg 09/23/23 08:00
Cyanocobalamin 1,000 Mcg Tablet PO 10/21/23 07:59
DAILY KARIME
Ferrous Sulfate 325 mg 09/23/23 08:00
Ferrous Sulfate 325 Mg Tablet PO 10/21/23 07:59
DAILY KARIME
Hydralazine HCl 10 mg 09/22/23 23:14
Hydralazine 20 Mg/Ml Vial IV 10/20/23 23:13
Q6HPRN PRN
sbp>160
Melatonin 10 mg 09/22/23 23:20
Melatonin 5 Mg Tablet PO 10/20/23 23:19
HSPRN PRN
SLEEP
Mirtazapine 15 mg 09/22/23 23:14 09/23/23 00:08
Mirtazapine 15 Mg Regular Release Tablet PO 10/20/23 23:13 15 mg
HS KARIME Administration
Sodium Chloride 0 flush 09/22/23 22:00
Sodium Chloride 0.9% (Flush) Syringe IV 10/20/23 21:59
PER PROTOCOL KARIME
Tamsulosin HCl 0.4 mg 09/22/23 23:14
Tamsulosin 0.4 Mg Capsule PO 10/20/23 23:13
DAILYPRN PRN
kidney stones
Review of Systems
-
History Source: Patient, Family, Coordinated Provider and Records
Constitutional: Reports No Symptoms; Denies Fever or Chills
EENT: Reports No Symptoms
Respiratory: Reports No Symptoms
Cardiac: Reports No Symptoms
GI: Reports No Symptoms
Breast: Reports N/A
: Reports Flank Pain and Bleeding
Musculoskeletal: Reports No Symptoms
Skin: Reports No Symptoms
Neuro: Reports No Symptoms
Endocrine: Reports No Symptoms
Hematologic/Lymphatic: Reports No Symptoms
Allergy / Immunology: Reports No Symptoms
Psych: Reports No Symptoms
Physical Exam
-
Patient is resting comfortably. Patient denies pain or fever. CBI has been clamped. at bedside. They are eager for discharge due to PET scan scheduled tomorrow.
General: Comfortable, Conversant, Appears Chronically Ill and Cachetic
HEENT: Negative Jaundice
Cardiology: S1, S2 and Other (bradycardia)
Pulmonary: Clear and Other (room air)
GI: Normal Bowel Sounds (hypoactive)
Genito-Urinary: Albert and Continuous Bladder Irrigation (clamped, osvaldo/blood-tinged urine, no clots)
Musculoskeletal: No Edema
Extremities: Pulses Present
Neurology: Non Focal
Skin: Warm, Dry and Other (pallor)
Hematologic / Lymphatic: No Petechiae
Psych: Calm
Labs
Lab Results
WBC 14.8 10^3/uL (4.8-10.8) H 09/23/23 04:35
RBC 2.84 10^6/uL (4.70-6.10) L 09/23/23 04:35
Hgb 8.7 g/dL (13.0-18.0) L 09/23/23 04:35
Hct 26.4 % (39.0-52.0) L 09/23/23 04:35
MCV 93.0 fL (80.0-94.0) 09/23/23 04:35
MCH 30.6 pg (27.0-31.0) 09/23/23 04:35
MCHC 33.0 g/dL (33.0-37.0) 09/23/23 04:35
RDW 18.3 % (11.5-14.5) H 09/23/23 04:35
Plt Count 131 10^3/uL (130-400) 09/23/23 04:35
MPV 9.2 fL (7.4-10.4) 09/23/23 04:35
Abs Immat Gran (auto) 0.1 10^3/uL (0-0.05) H 09/23/23 04:35
Absolute Neuts (auto) 12.8 10^3/uL (1.4-6.5) H 09/23/23 04:35
Absolute Lymphs (auto) 1.0 10^3/uL (1.2-3.4) L 09/23/23 04:35
Absolute Monos (auto) 0.9 10^3/uL (0.1-0.6) H 09/23/23 04:35
Absolute Eos (auto) 0.0 10^3/uL (0-0.7) 09/23/23 04:35
Absolute Basos (auto) 0.1 10^3/uL (0-0.2) 09/23/23 04:35
Immature Gran % 0.3 % (0-0.5) 09/23/23 04:35
Neutrophils % 86.7 % (42.2-75.2) H 09/23/23 04:35
Lymphocytes % 6.7 % (20.5-51.1) L 09/23/23 04:35
Monocytes % 5.8 % (1.7-9.3) 09/23/23 04:35
Eosinophils % 0.1 % (0-6) 09/23/23 04:35
Basophils % 0.4 % (0-2) 09/23/23 04:35
Creatinine 1.2 mg/dL (0.7-1.3) 09/23/23 04:35
Vital Signs
Vital Signs
Temp Pulse Resp BP Pulse Ox
97.7 F 56 18 159/70 99
09/22/23 23:45 09/22/23 23:45 09/22/23 23:45 09/22/23 23:45 09/22/23 23:45
09/22/23 CT abd/pelvis: MARKEDLY LIMITED STUDY WITHOUT ORAL/INTRAVENOUS CONTRAST AND ALSO A RESULT OF MARKED PAUCITY OF INTRA-ABDOMINAL FAT. Especially limited as a left kidney which contains calculi and is also involvement with known
retroperitoneal lymphadenopathy. Evaluation for left-sided obstructive uropathy markedly limited. Evaluation for solid organ malignant involvement such as a liver and spleen are limited and cannot be excluded.Likely progression of advanced
retroperitoneal malignancy/lymphadenopathy, markedly limited on this study, in comparison with prior study August 04, 2023. Likely nonobstructing right renal calculi/staghorn calculi. Cannot exclude intrinsic urinary bladder malignancy. Enlarged
prostate with extrinsic impression upon the urinary bladder base.Degenerative changes of the lumbar spine. Cannot exclude metastatic disease involvement of the L2 and L3 vertebral bodies.
[2023-09-23] MEDS: VITAMIN B-12 1000 MCG PO (08:21)
[2023-09-23] MEDS: VITAMIN D3 (cholecalciferol) 125 MCG PO (08:21)
[2023-09-23] MEDS: NORVASC 5 MG PO (08:21)
[2023-09-23] MEDS: FEOSOL 325 MG PO (08:21)
--- NOTE | 2023-09-23 09:38 | W.PN.URO.CBU ---
Today's Communication / Plan
-
Stop CBI
Plan voiding trial later today, then cleared for discharge home from a urologic standpoint
Outpatient follow up as scheduled with Dr. Farias
Assessment / Plan
-
Transient gross hematuria: resolved
Widely metastatic urothelial cell CA
Diagnosis
-
Date of Service: September 23, 2023
-
Patient Diagnosis:
Widely metastatic urothelial cell carcinoma s/p systemic chemotherapy
On Keytruda since May with radiographic evidence of progressive disease
---
Patient was admitted with gross hematuria yesterday: has cleared on CBI overnight
Of note, he is s/p left renal embolization for persistent renal hemorrhage 12/12/23
Subjective
-
Comfortable
No flank or SP pain
Objective
-
Vital Signs
Temp Pulse Resp BP Pulse Ox
97.4 F 55 18 133/59 100
09/23/23 07:00 09/23/23 08:21 09/23/23 07:00 09/23/23 08:21 09/23/23 07:00
Intake and Output
09/22/23 09/23/23 09/24/23
06:59 06:59 06:59
Intake Total 6000 / 6000
Output Total 73990 / 96029 250 / 250
Balance -42733 / -54465 -250 / -250
Intake:
Amount instilled into Urinary 6000 / 6000
Drain (Total)
Output:
Urinary Drain Output (Total) 6700 / 6700
True Urine Output from CBI 84529 / 42920 250 / 250
Laboratory Results
09/23/23 04:35
09/23/23 04:35
Review of Systems
-
Constitutional: No Symptoms
Respiratory: No Symptoms
Cardiac: No Symptoms
Abdomen/GI: No Symptoms
: Bleeding
Neurological: No Symptoms
Physical Exam
-
General - thin, no acute distress
Abdomen - soft, non-tender
Genitalia - normal with Albert draining clear urine on slow drip CBI
--- NOTE | 2023-09-23 11:20 | W.PN.HOSP.TC ---
Addendum entered and electronically signed by Eliane Vo MD 09/24/23 15:28:
total DC time 35 min
Original Note:
Today's Communication/Plan
-
see A/P
Assessment / Plan
Assessment / Plan
83-year-old male PMH hypertension, iron deficiency anemia, bowel obstruction with bowel resection 2001 secondary to colon cancer, urothelial cancer on Keytruda (follows with [facility]); p/w gross hematuria and difficulty with urination.
He is currently on Keytruda and was on Padcev therapy which was stopped last week due to elevated WBC count of 29.
A/P:
# Gross hematuria in setting of Urothelial cancer, resolved
Receives Keytruda therapy�and was Padcev with Dr. Saunders
UA neg for UTI
off CBI and juarez discontinued , monitor TOV
Appreciate urology input
Continue Flomax with hold parameters for BP
# Improved leukocytosis
WBC at 29 one week [employer] and Padcev was held
WBC at 14.8 today
# Hyponatremia
NA 129
Follow BMP outpt
# CHRISTOPHER on CKD stage IIIb
CHRISTOPHER has resolved
Creat 1.2 from 1.4 on admission
# HTN-benign
Continue [employer] Norvasc
hydralazine IV PRN for SBP > 160
# Iron deficiency anemia
Continue ferrous sulfate
# History of colon cancer with bowel resection 2001
# Chronic ambulatory dysfunction
PT/OT/case management eval
# Insomnia
Continue melatonin as needed, Remeron
# Cachexia, severe protein caloric malnutrition
BMI 16.3
DVT prophylaxis: SCDs
DW at bedside
Anticipated Discharge: Today
Subjective/Interval History
-
Date of Service: September 23, 2023
Objective Data
-
Labs:
Laboratory Results
09/23/23
04:35
WBC 14.8 H
Hgb 8.7 L
Hct 26.4 L
Plt Count 131
Sodium 129 L
Potassium 4.1
Chloride 104
Carbon Dioxide 21 L
BUN 28 H
Creatinine 1.2
Glucose 85
Calcium 8.3 L
Vital Signs:
Vital Signs
Temp Pulse Resp BP Pulse Ox
36.3 C 55 18 133/59 100
09/23/23 07:00 09/23/23 08:21 09/23/23 07:00 09/23/23 08:21 09/23/23 07:00
I&O
09/22/23 09/23/23 09/24/23
06:59 06:59 06:59
Intake Total 6000 / 6000
Output Total 78630 / 25017 300 / 300
Balance -34495 / -69354 -300 / -300
Review of Systems
-
All other systems: Reviewed and negative
Physical Exam
-
General: Well Developed, No Apparent Distress, Comfortable, Appears Chronically Ill and Cachectic
HEENT: Moist Mucous Membranes
Respiratory: Clear to Auscultation and Non Labored Respirations; Negative Accessory Resp Muscle Use
Cardiac: Regular Rhythm and S1/S2
GI: Soft, Nontender, Nondistended and Normal Bowel Sounds
Genito-urinary: Negative Juarez
Neuro: Awake and Alert
Psych: Calm and Intact Judgement/Insight
Data Reviewed
-
CT Scan: Report Reviewed by me
Labs: Labs Reviewed by me
[2023-09-23 11:45] VITALS: BMI 15.1
[2023-09-23 12:26] VITALS: BP 145/69; PULSE 50; O2SAT 100
[2023-09-23 12:36] VITALS: BP 145/69; PULSE 50; O2SAT 100
[2023-09-23 15:00] VITALS: BP 143/57
--- NOTE | 2023-09-23 16:35 | PTCARENOTE ---
pt with a 200 ml punch color urine output with 5 ml post void residual noted. MD Boyle and Gilda made aware. no new orders. pt to be discharged.
--- NOTE | 2023-09-24 14:59 | W.DCSUMMARY ---
Discharge Summary
Discharge Data
Date of Admission: 09/22/23
Date of Discharge: 09/23/23
-
Pending Results: No
Hospital Course
Principal Diagnosis:
Gross hematuria likely due to underlying urothelial cancer
Acute kidney injury (CHRISTOPHER) on chronic kidney disease (CKD) stage 3b
Chronic Diagnoses:�
Essential hypertension
Iron deficiency anemia, on ferrous sulfate
History of colon cancer with bowel resection 2001
Chronic ambulatory dysfunction
Insomnia, on melatonin as needed, on Remeron
Cachexia with severe protein caloric malnutrition, BMI 16.3
Chronic Hyponatremia
Consultations:�
Urology
Oncology
Procedures:�
None
Clinical course:�
This is a 83-year-old male with past medical history as stated above, who presented with gross hematuria and difficulty with urination.
Of note, he is currently on Keytruda and was on Padcev therapy which was stopped the week prior due to elevated white count at 29.
Problem 1:
Gross hematuria in setting of urothelial cancer.
His gross hematuria resolved after CBI.
His UA was negative for UTI.
A Albert catheter was temporary placed, which was discontinued. He passed voiding trial prior to discharge.
He can follow-up with urology outpatient.
Problem 2:
Improved leukocytosis.
His WBC was at 29 one week ago prior to admission and Padcev was held.
His WBC was at 14.8 on the day of discharge.
Problem 3:
CHRISTOPHER has resolved.
His creatinine downtrended from 1.4 to 1.2.
As for the rest of his medical problems, they were stable during his hospital stay.
Discharge Plan
-
Patient Disposition: Home with Home Care
Discharge Diagnosis/Procedures: Gross hematuria in setting of Urothelial cancer, resolved hematuria
Condition: Fair
Diet: As tolerated
Activity: As tolerated
Driving Restrictions: As prior to admission
Blood Work: CBC, BMP in 1 week, results to PCP/oncologist
Referrals:
Vangie Saravia MD [Family Provider] - in less than 1 week
Prescriptions:
Continued
tamsulosin [Flomax] 0.4 MG capsule
0.4 mg PO DAILYPRN PRN (Reason: kidney stones)
acetaminophen 500 mg Tablet
1,000 mg PO DAILYPRN PRN (Reason: mild pain)
cinnamon bark [Cinnamon] 500 mg Capsule
1,000 mg PO DAILY
cholecalciferol (vitamin D3) [Vitamin D3] 125 mcg (5,000 unit) Tablet
5,000 unit PO DAILY
melatonin 5 mg Capsule
10 mg PO HSPRN PRN (Reason: SLEEP)
ferrous sulfate [iron] 325 mg (65 mg iron) Tablet
325 mg PO DAILY
cyanocobalamin (vitamin B-12) 1,000 mcg Tablet
1,000 mcg PO DAILY
amlodipine [Norvasc] 5 mg Tablet
5 mg PO DAILY
mirtazapine 15 mg Tablet
15 mg PO HS
Discharge Orders:
Discharge Patient (As Directed); Ordered 09/23/23
Ordered By: Eliane Vo
Discharge Date and Time
Discharge Date/Time: 09/23/23 17:29
== END 2023-09-23 17:29 | disposition home health service (06) | DRG 686 ==
LOC: 3 WEST ACU 18:26
PROVIDERS: Clinical Nurse Specialist Family Health; Emergency Medicine; ADMITTING PHYSICIAN Internal Medicine; EMERGENCY PHYSICIAN Emergency Medicine; FAMILY PHYSICIAN Internal Medicine; OTHER PHYSICIAN Internal Medicine Hematology & Oncology
DX: C68.9 Malignant neoplasm of urinary organ, unspecified (principal); E43 Unspecified severe protein-calorie malnutrition; R64 Cachexia; Z68.1 Body mass index [BMI] 19.9 or less, adult; E87.1 Hypo-osmolality and hyponatremia; N17.9 Acute kidney failure, unspecified; N20.0 Calculus of kidney; N18.32 Chronic kidney disease, stage 3b; I12.9 Hypertensive chronic kidney disease with stage 1 through stage 4 chronic kidney disease, or unspecified chronic kidney disease; D50.9 Iron deficiency anemia, unspecified; G47.00 Insomnia, unspecified; D63.8 Anemia in other chronic diseases classified elsewhere
CPT/HCPCS: 51702; 74176; 80048; 80053; 81003; 81015; 85025; 85610; 93005; 97116; 97163; 97167; 99285

== ENCOUNTER → 2023-09-27 16:07 | Outpatient (REF) | payer MEDICARE, SELFPAY ==
[2023-09-27 12:52] LABS: % Basophils 0.3 % (0-2); % Eosinophils 0.2 % (0-6); % Immature Granulocytes 0.3 % (0-0.5); % Lymphocytes 6.1 % (20.5-51.1); % Monocytes 5.1 % (1.7-9.3); Absolute Lymphocytes 0.8 10^3/uL (1.2-3.4); Absolute Monocytes 0.6 10^3/uL (0.1-0.6); Absolute Neutrophils 11.1 10^3/uL (1.4-6.5); Hematocrit 26.6 % (39.0-52.0); Hemoglobin 8.9 g/dL (13.0-18.0); Mean Corp Hgb Conc. 33.5 g/dL (33.0-37.0); Mean Corpuscular Hgb 31.4 pg (27.0-31.0); Mean Platelet Volume 9.8 fL (7.4-10.4); Nucleated Red Blood Cells % 0 % (-); Platelet Count 159 10^3/uL (130-400); Red Blood Cell Count 2.83 10^6/uL (4.70-6.10); Red Cell Dist. Width 18.3 % (11.5-14.5); White Blood Cell Count 12.6 10^3/uL (4.8-10.8)
[2023-09-27 13:09] LABS: ALT (SGPT) 15 U/L (0-50); AST (SGOT) 22 U/L (17-59); Albumin 3.5 g/dl (3.5-5.0); Alkaline Phosphatase 122 U/L (38-126); Blood Urea Nitrogen 23 mg/dl (9-20); Calcium 9.2 mg/dl (8.4-10.2); Carbon Dioxide 24 mmol/L (22-30); Chloride 101 mmol/L (98-107); Glucose 153 mg/dl (70-99); Sodium 131 mmol/L (135-145); Total Bilirubin 0.5 mg/dl (0.2-1.3); Total Protein 6.2 g/dl (6.3-8.2); eGFR 59.63
[2023-09-27 13:46] LABS: TSH Reflex To Free T4 0.86 uIU/ml (0.47-4.68)
== END ==
LOC: OIDL 16:07
PROVIDERS: ATTENDING PHYSICIAN Nurse Practitioner Adult Health
DX: R59.0 Localized enlarged lymph nodes (principal); R53.82 Chronic fatigue, unspecified
CPT/HCPCS: 80053; 84443; 85025

== ENCOUNTER 2023-10-12 15:29 | Outpatient (RCR) | payer MEDICARE, SELFPAY ==
[2023-10-12 10:53] LABS: % Basophils 0.3 % (0-2); % Eosinophils 1.5 % (0-6); % Immature Granulocytes 0.1 % (0-0.5); % Lymphocytes 6.3 % (20.5-51.1); % Monocytes 5.7 % (1.7-9.3); % Neutrophils 86.1 % (42.2-75.2); Absolute Eosinophils 0.1 10^3/uL (0-0.7); Absolute Lymphocytes 0.5 10^3/uL (1.2-3.4); Absolute Monocytes 0.4 10^3/uL (0.1-0.6); Absolute Neutrophils 6.5 10^3/uL (1.4-6.5); Hematocrit 26.9 % (39.0-52.0); Hemoglobin 8.7 g/dL (13.0-18.0); Mean Corp Hgb Conc. 32.3 g/dL (33.0-37.0); Mean Corpuscular Hgb 31.8 pg (27.0-31.0); Mean Corpuscular Volume 98.2 fL (80.0-94.0); Mean Platelet Volume 9.4 fL (7.4-10.4); Platelet Count 146 10^3/uL (130-400); Red Blood Cell Count 2.74 10^6/uL (4.70-6.10); Red Cell Dist. Width 18.1 % (11.5-14.5); White Blood Cell Count 7.5 10^3/uL (4.8-10.8)
== END 2023-11-02 23:59 | disposition home or self-care (01) ==
LOC: OID 15:29
PROVIDERS: ATTENDING PHYSICIAN Nurse Practitioner Adult Health
DX: C67.9 Malignant neoplasm of bladder, unspecified (principal); R59.0 Localized enlarged lymph nodes; R53.82 Chronic fatigue, unspecified; D63.1 Anemia in chronic kidney disease
CPT/HCPCS: 85025

== ENCOUNTER → 2023-10-25 10:38 | Outpatient (REF) | payer MEDICARE, SELFPAY ==
[2023-10-25 11:53] LABS: % Basophils 0.2 % (0-2); % Eosinophils 0.5 % (0-6); % Immature Granulocytes 0.4 % (0-0.5); % Lymphocytes 4.2 % (20.5-51.1); % Neutrophils 88.7 % (42.2-75.2); Absolute Lymphocytes 0.2 10^3/uL (1.2-3.4); Absolute Monocytes 0.3 10^3/uL (0.1-0.6); Absolute Neutrophils 5.1 10^3/uL (1.4-6.5); Hematocrit 28.2 % (39.0-52.0); Hemoglobin 9.4 g/dL (13.0-18.0); Mean Corp Hgb Conc. 33.3 g/dL (33.0-37.0); Mean Corpuscular Hgb 31.9 pg (27.0-31.0); Mean Corpuscular Volume 95.6 fL (80.0-94.0); Nucleated Red Blood Cells % 0 % (-); Red Blood Cell Count 2.95 10^6/uL (4.70-6.10); Red Cell Dist. Width 17.2 % (11.5-14.5); White Blood Cell Count 5.7 10^3/uL (4.8-10.8)
[2023-10-25 12:50] LABS: Mean Platelet Volume 9.6 fL (7.4-10.4); Platelet Count 95 10^3/uL (130-400)
[2023-10-25 14:43] LABS: TSH Reflex To Free T4 1.14 uIU/ml (0.47-4.68)
[2023-10-25 14:45] LABS: ALT (SGPT) 13 U/L (0-50); AST (SGOT) 23 U/L (17-59); Alkaline Phosphatase 107 U/L (38-126); Blood Urea Nitrogen 29 mg/dl (9-20); Calcium 8.4 mg/dl (8.4-10.2); Carbon Dioxide 22 mmol/L (22-30); Chloride 100 mmol/L (98-107); Glucose 92 mg/dl (70-99); Potassium 4.4 mmol/L (3.5-5.1); Sodium 127 mmol/L (135-145); Total Bilirubin 0.4 mg/dl (0.2-1.3); Total Protein 5.7 g/dl (6.3-8.2); eGFR > 60.00
== END ==
LOC: REG 10:38
PROVIDERS: ATTENDING PHYSICIAN Nurse Practitioner Adult Health; FAMILY PHYSICIAN Internal Medicine
DX: R59.0 Localized enlarged lymph nodes (principal); C67.9 Malignant neoplasm of bladder, unspecified; Z51.81 Encounter for therapeutic drug level monitoring; R53.82 Chronic fatigue, unspecified; D63.1 Anemia in chronic kidney disease
CPT/HCPCS: 36415; 80053; 84443; 85025

== ENCOUNTER → 2023-11-11 11:33 | Outpatient (REF) | payer MEDICARE, SELFPAY ==
[2023-11-11 12:35] LABS: Urine Albumin 2+ (Neg - Trace); Urine Bilirubin 1+ (Negative); Urine Character Very Cloudy (Clear); Urine Color Brown; Urine Glucose Negative (Negative); Urine Ketone Trace (Negative); Urine Leukocyte 2+ (Negative); Urine Nitrite Positive (Negative); Urine Occult Blood 4+ (Negative); Urine Urobilinogen 1+ (Neg - 1+)
[2023-11-11 12:52] LABS: Urine Red Blood Cell >100 /HPF (0-2)
[2023-11-11 13:03] LABS: % Basophils 0.4 % (0-2); % Eosinophils 0.4 % (0-6); % Immature Granulocytes 0.4 % (0-0.5); % Lymphocytes 12.5 % (20.5-51.1); % Monocytes 9.1 % (1.7-9.3); % Neutrophils 77.2 % (42.2-75.2); Absolute Lymphocytes 0.3 10^3/uL (1.2-3.4); Absolute Monocytes 0.2 10^3/uL (0.1-0.6); Hematocrit 30.8 % (39.0-52.0); Hemoglobin 9.9 g/dL (13.0-18.0); Mean Corp Hgb Conc. 32.1 g/dL (33.0-37.0); Mean Corpuscular Hgb 31.1 pg (27.0-31.0); Mean Corpuscular Volume 96.9 fL (80.0-94.0); Nucleated Red Blood Cells % 0 % (-); Red Blood Cell Count 3.18 10^6/uL (4.70-6.10); Red Cell Dist. Width 15.8 % (11.5-14.5); White Blood Cell Count 2.6 10^3/uL (4.8-10.8)
[2023-11-11 14:14] LABS: ALT (SGPT) 16 U/L (0-50); AST (SGOT) 30 U/L (17-59); Albumin 2.9 g/dl (3.5-5.0); Alkaline Phosphatase 133 U/L (38-126); Blood Urea Nitrogen 27 mg/dl (9-20); Calcium 8.4 mg/dl (8.4-10.2); Carbon Dioxide 25 mmol/L (22-30); Chloride 101 mmol/L (98-107); Glucose 107 mg/dl (70-99); Potassium 4.4 mmol/L (3.5-5.1); Sodium 130 mmol/L (135-145); Total Bilirubin 0.5 mg/dl (0.2-1.3); Total Protein 5.6 g/dl (6.3-8.2); eGFR > 60.00
[2023-11-11 15:50] LABS: Mean Platelet Volume 11.7 fL (7.4-10.4); Platelet Count 40 10^3/uL (130-400)
== END ==
LOC: REG 11:33
PROVIDERS: ATTENDING PHYSICIAN Internal Medicine Hematology & Oncology; FAMILY PHYSICIAN Internal Medicine
DX: R59.0 Localized enlarged lymph nodes (principal); C67.9 Malignant neoplasm of bladder, unspecified; Z51.81 Encounter for therapeutic drug level monitoring; R53.82 Chronic fatigue, unspecified; D63.1 Anemia in chronic kidney disease; R31.0 Gross hematuria
CPT/HCPCS: 36415; 80053; 81003; 81015; 85025; 87086; 87147